=== PATIENT | female | born 1965 ===

== ENCOUNTER 2016-11-17 13:41 | Emergency (ER) | payer BC ==
[2016-11-17 13:55] VITALS: BP 154/91
[2016-11-17] MEDS ORDERED: predniSONE TAB* 20 MG PO ONE (16:03)
--- NOTE | 2016-11-17 16:12 | UC ---
Throat Pain/Nasal Norris HPI - HPI Summary HPI Summary: Woke with swollen uvula, "felt like I was gagging!" Painful today, red, oozing blood. Mild sinus congestion, mild cough. No fever. - History of Current Complaint Chief Complaint: UCRespiratory Stated Complaint: SWOLLEN THROAT Time Seen by Provider: 11/17/16 15:59 Hx Obtained From: Patient Onset/Duration: Sudden Onset - woke with it this AM Severity: Moderate Cough: Nonproductive Associated Signs & Symptoms: Positive: Dysphagia, Hoarseness, Nasal Discharge. Negative: FB Sensation, Drooling, Wheezing, Sinus Discomfort, Fever, Vomiting, Rash - Epiglottits Risk Factors Epiglottis Risk Factors: Negative, Muffled Voice - Allergies/Home Medications Allergies/Adverse Reactions: Allergies Allergy/AdvReac Type Severity Reaction Status Date / Time Penicillins Allergy See Comment Verified 11/17/16 13:46 Home Medications: Home Medications Bp Medication DAILY 11/17/16 [History] PARoxetine HCL TAB* [Paxil TAB*] 10 mg PO DAILY 11/17/16 [History Confirmed 06/25] guaiFENesin ER TAB [Mucinex*] 600 mg PO BID PRN 11/17/16 [History Confirmed 06/25] PMH/Surg Hx/FS Hx/Imm Hx Cardiovascular History Of: Reports: Hypertension - saw PCP Monday, and they are monitoring. - Surgical History Surgical History: Yes Surgery Procedure, Year, and Place: - Family History Known Family History: Positive: Hypertension - Social History Occupation: Employed Full-time Lives: With Family Alcohol Use: Weekly Substance Use Type: None Smoking Status (MU): Former Smoker When Did the Patient Quit Smoking/Using Tobacco: 2003 - Immunization History Most Recent Influenza Vaccination: not this season Review of Systems Constitutional: Chills, Fatigue Skin: Negative Eyes: Negative ENT: Sore Throat Respiratory: Cough Cardiovascular: Negative Gastrointestinal: Negative Genitourinary: Negative Motor: Negative Neurovascular: Negative Musculoskeletal: Myalgia Neurological: Negative Psychological: Negative All Other Systems Reviewed And Are Negative: Yes Physical Exam Triage Information Reviewed: Yes Appearance: Well-Appearing, No Pain Distress, Well-Nourished Vital Signs: Initial Vital Signs Temp 98 F 11/17/16 13:47 Pulse 127 11/17/16 13:47 Resp 18 11/17/16 13:47 BP 154/91 02/09/17 13:47 Pulse Ox 98 11/17/16 13:47 Vital Signs Reviewed: Yes Eye Exam: Normal Eyes: Positive: Conjunctiva Clear ENT: Positive: Hearing grossly normal, Pharyngeal erythema - mild; uvula is mildly swollen with petechiae and some blood oozing from it, TMs normal, Muffled /hoarse voice - hoarse, slightly muffled, Other: - swallowing saliva well. Negative: Tonsillar swelling, Tonsillar exudate Respiratory Exam: Normal Respiratory: Positive: Lungs clear, Normal breath sounds, No respiratory distress, No accessory muscle use Cardiovascular Exam: Normal Cardiovascular: Positive: RRR, No Murmur, Pulses Normal, Brisk Capillary Refill Musculoskeletal Exam: Normal Neurological Exam: Normal Psychological Exam: Normal Skin Exam: Normal Diagnostics - Laboratory Diagnostic Studies Completed/Ordered: Strep neg Throat Pain/Nasal Course/Dx - Differential Dx/Diagnosis Differential Diagnosis/HQI/PQRI: Pharyngitis, URI Provider Diagnoses: uvulitis Discharge - Discharge Plan Condition: Stable Disposition: HOME Prescriptions: predniSONE TAB* [Deltasone TAB*] 40 mg PO DAILY #6 tab Patient Education Materials: Uvulitis (ED) Referrals: Judy Madison MD [Primary Care Provider] - Additional Instructions: Avoid hot beverages for a few days, it may make the uvula swell more. Iced beverages will help with the swelling and pain. If it feels much better tomorrow, you don't need any further doses of prednisone. If it still feels sore and swollen tomorrow, take prednisone once a day for the next 3 days
== END 2016-11-17 16:25 | disposition home or self-care (01) ==
LOC: UCCORT 13:41
DX: K12.2 Cellulitis and abscess of mouth (principal); I10 Essential (primary) hypertension; Z87.891 Personal history of nicotine dependence; Z88.0 Allergy status to penicillin
CPT/HCPCS: 87651; 99202; G0463; J7512

== ENCOUNTER 2018-02-22 09:08 | Emergency (ER) | payer BC ==
--- OUTSIDE RECORDS SUMMARY | 2018-02-22 09:15 | XMS REPORT ---
:1965 External Reference #:[id number] Author Organization [facility] Address [address] [place] [address] Phone [phone] Care Team Providers Name Role Phone Judy Madison M.D. Primary Care Physician Unavailable Payers Type Date Identification Numbers Payment Provider Subscriber Commercial Effective: Policy Number: [id number] [facility] 2017 [facility] Group Number: [id number] [address] Group Name: [place] [address] PayID: [id number] Problems Date Description Provider Status Onset: 01/29/2018 Chronic allergic conjunctivitis Joseph Solomon M.D. Active Onset: 01/29/2018 Allergic rhinitis due to pollen Joseph Solomon M.D. Active Onset: 01/29/2018 Immunization Joseph Solomon M.D. 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 Home Environment Has a window air conditioner Home Environment Stairs are not present Home Environment There is no basement Home Environment Cotton Comforter Home Environment Mattress is 6 years old Home Environment Mattress is encased in an allergy proof case Home Environment Regular Mattress Home Environment Pillows are polyester Home Environment Pillows are not encased in an allergy proof case Home Environment Does not use a dehumidifier Home Environment There are no draperies in the home Home Environment The home is not soniya Home Environment The floors are carpeted Home Environment The floors are wood Home Environment Uses natural gas heating Smoke-Free Work is smoke-free Smoke-Free Home is smoke-free Pets 1 dog comes to visit Pets Animals sleep in bedroom 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 daily Azelastine HCL 01/30 Active Solution 0.1% 30uni spray one Joseph (Nasal) ts spray in Solomon, each M.DAquilino nostril twice a day in the morning and at night Montelukast 01/29 Active Tablets 10mg 30tab 1 by mouth J30.1 Joseph Sodium s every day Bandar Solomon Dymista 01/29 Active Suspension 137-50mcg 23gm 2 squirt J30.1 Joseph /2017 /Act each Solomon, nostril M.D. daily Bepreve 01/29 Active Solution 1.5% 10ml 2 drops H10.45 Joseph q12 in Neha, each eye M.DAquilino Enalapril Maleate Active Tablets 10mg Los, / Bandar Kim Hydrochlorothiazi Active Tablets 12.5mg Los de Bandar Kim Zaleplon Active Capsules 10mg Los, / Bandar Kim Paroxetine HCL Active Tablets 30mg Los / Bandar Kim Ibuprofen Active Tablets 800mg take 1 Unknown /0000 tablet three times a day if needed with food Fluticasone Active Suspension 50mcg/Act instill 1 Unknown Propionate /0000 spray into each nostril daily Regularly Dymista Active Suspension 137-50mcg 2 squirt Unknown /0000 /Act each nostril daily Pazeo Active Solution 0.7% 1 drop Unknown /0000 each eye once daily Vital Signs Date Vital Result Comment 01/29/2018 Height 61 inches 5'1" Weight 168.00 lb Weight in kg's 76.205 Respiratory Rate 16 /min Heart Rate 105 /min O2 % BldC Oximetry 98 % BP Systolic 147 mmHg BP Diastolic 98 mmHg BMI (Body Mass Index) 31.7 kg/m2 Results Description No Information Procedures Date CPT Code Description Status 01/29/2018 34624 Skin Test Scratch # Of Units ____ Completed Encounters Type Date Location Provider CPT E/M Dx Office Visit 01/29/2018 2:20p Nicky Solomon M.D. [id number] J30.1 H10.45 Z23 Plan of Care 01/29/2018 - Joseph Solomon M.D.J30.1 Allergic rhinitis due to pollenNew Medication:Montelukast Sodium 10 mgDymista 137-50 mcg/ActFollow up:6 weeks for the discussionRecommendations:skin testing will give her a sample of Dymista 2 squirt once a day add the Montelukast 10 mg 1 tab po once a day sinus rinse skin testing positive for different pollens ,some molds, it was also positive for cat and dog results of the hhrnqqiapO35.45 Other chronic allergic conjunctivitisNew Medication:Bepreve 1.5 %Recommendations:Bepreve 1-2 drops once a day ice [id number] Encounter for immunizationRecommendations:Patient to discuss blood pressure with their primary-care provider. Educational material provided to the patient. Patient to discuss influenza with patient's primary- care provider. Educational material provided to the patient.
[2018-02-22 09:25] VITALS: BP 161/81
--- NOTE | 2018-02-22 10:18 | UC ---
Skin Complaint HPI - HPI Summary HPI Summary: 52 year female with rash. Started over the last few days . exposed to new cat over the weekend. never had before. red raised spot on the left posterior shoulder no fever. no drainage. no bleeding or bruising. no other Sx - History of Current Complaint Chief Complaint: UCSkin Time Seen by Provider: 02/22/18 09:46 Stated Complaint: RASH Hx Obtained From: Patient Onset/Duration: Sudden Onset Timing: Constant Onset Severity: Mild Current Severity: Mild Pain Intensity: 3 Related History: Possible Reaction to: Animal - Allergy/Home Medications Allergies/Adverse Reactions: Allergies Allergy/AdvReac Type Severity Reaction Status Date / Time Penicillins Allergy See Comment Verified 02/22/18 09:19 Review of Systems Skin: Rash Is Patient Immunocompromised?: No All Other Systems Reviewed And Are Negative: Yes PMH/Surg Hx/FS Hx/Imm Hx Previously Healthy: Yes - Surgical History Surgical History: Yes Surgery Procedure, Year, and Place: x2 - Family History Known Family History: Positive: Hypertension - Social History Occupation: Employed Full-time Alcohol Use: Weekly Alcohol Amount: 3 x weekly Substance Use Type: None Smoking Status (MU): Former Smoker When Did the Patient Quit Smoking/Using Tobacco: 2003 - Immunization History Most Recent Influenza Vaccination: not this season Physical Exam Triage Information Reviewed: Yes Appearance: Well-Appearing Vital Signs: Initial Vital Signs Temp 98.1 F 02/22/18 09:22 Pulse 98 02/22/18 09:22 Resp 16 02/22/18 09:22 BP 161/81 02/22/18 09:22 Pulse Ox 99 02/22/18 09:22 Vital Signs Reviewed: Yes Eyes: Positive: Conjunctiva Clear ENT: Positive: Hearing grossly normal Respiratory: Positive: No respiratory distress Musculoskeletal Exam: Normal Neurological Exam: Normal Psychological Exam: Normal Skin: Positive: rashes - left upper posterior shoulder with 2 lesions. round, red, circular with central clearing. no vesicles. mild tender. mild raised. no erythema. no drainage or bruising. no streaking. Course/Dx - Course Course Of Treatment: start with topicals and if not improved then f/u with PCP to discuss further evaluation and treatment - Diagnoses Provider Diagnoses: Tinea corporis Discharge - Sign-Out/Discharge Documenting (check all that apply): Discharge/Admit/Transfer - Discharge Plan Condition: Good Disposition: HOME Prescriptions: Clotrimazole/Betamethasone Dip [Clotrimazole-Betamethasone Lot] 30 ml TP TID #1 tube Patient Education Materials: Tinea Corporis (ED) Referrals: Judy Madison MD [Primary Care Provider] - If Needed - Billing Disposition and Condition Condition: GOOD Disposition: HOME
== END 2018-02-22 10:15 | disposition home or self-care (01) ==
LOC: UCEAST 09:08
DX: B35.4 Tinea corporis (principal); Z88.0 Allergy status to penicillin; Z87.891 Personal history of nicotine dependence
CPT/HCPCS: 99212; G0463